=== PATIENT | male | born 1970 | race Caucasian/White ===

== ENCOUNTER 2023-08-22 14:19 | Emergency (ER) | payer OTHER, SELFPAY ==
[2023-08-22 14:32] VITALS: BP 175/98
--- NOTE | 2023-08-22 15:42 | ED.GENMED ---
History of Present Illness
General
Chief Complaint: Musculo-Skeletal Complaint
Source: patient
Exam Limitations: none
Time Seen by Provider: 08/22/23 15:10
Nursing documentation reviewed up to this point in time: agreed with
Travel History
Have you had any contact with someone who has COVID-19?: No
Do you have any symptoms of coronavirus? Fever > 100 degrees, chills, cough, shortness of breath, sore throat, loss of taste or smell, muscle aches, or headache?: No
History of Present Illness
History of Present Illness:
53-year-old male presenting to the emergency department today with concerns of right foot pain after getting tripped up outside hitting his right foot on something in his yard. Ongoing pain to the top of his foot since. Denies any additional
concerns numbness weakness or additional trauma.
Review of Systems
Review of Systems
Allergies reviewed?: Yes
All Other Systems: ROS reviewed and negative except as documented in HPI and ROS
Phy Exam
Physical Exam
Physical Exam:
GENERAL: Alert , in no apparent distress
EYE: pupils equal and reactive
NECK: Supple, no significant adenopathy.
ENT: o/p clr, mmm.
CARDIAC: Regular rate and rhythm .
LUNGS: Clear breath sounds bilaterally, no acute respiratory distress, no wheezes/rales/rhonchi
ABDOMEN: Soft, without focal tenderness, no r/g, no cvat
NEUROLOGICAL: Alert and oriented, no focal neuro deficits
SKIN: Warm and dry, skin intact.
MUSCULOSKELETAL: Mild swelling and tenderness palpation mainly to the midfoot no tenderness to the base of the fifth metatarsal or ankle no tenderness to the toes. No tenderness to the tib-fib. Well perfused.
PSYCH: Normal and appropriate interaction.
Course
Orders/Labs/Results
Orders:
Orders
08/22/23 14:37
Foot, Right 3 View [CR Foot - Right Min 3 Views] Urgent
Comment:
Reason For Exam: injury/trauma
08/22/23 15:54
boot [Ortho Boot Right- Treatment] ONCE
Short or tall?: Short
Vital Signs
Initial and Last Documented VS:
Initial Vital Signs
Temp Pulse Resp BP Pulse Ox
98.1 F 65 18 175/98 98
08/22/23 14:32 08/22/23 14:32 08/22/23 14:32 08/22/23 14:32 08/22/23 14:32
Last Documented Vital Signs
Temp Pulse Resp BP Pulse Ox
98.1 F 65 18 175/98 98
08/22/23 14:32 08/22/23 14:32 08/22/23 14:32 08/22/23 14:32 08/22/23 14:32
MDM/Problems Addressed
MDM/Problems Addressed:
53-year-old male presenting to the emergency department today with concerns of right-sided foot discomfort after hitting his foot while gardening yesterday. Difficulty ambulating today. Pain mainly to the midfoot on exam x-ray without obvious
signs of fracture. Patient with likely sprain patient was given a hard soled shoe but otherwise stable for discharge. Return precautions given.
*Critical Care Note
Total Time (30-74mins, 75-104mins- exclusive of procedures): Not Applicable
ED Attending Note
-
Portions of this chart may have been created with voice recognition software.� Occasional wrong word or��sound alike� substitutions may have occurred due to the inherent limitations of voice recognition software.
Discharge Plan
Departure
Patient Disposition: Home (Routine Discharge)
Date of Disposition: 08/22/23
Time of Disposition: 15:54
Patient with high blood pressure during this ER visit?: Yes
Condition: Good
Covid-19: Not Applicable
Discharge Problem:
Foot sprain
Instructions: Muscle and Bone Pain (DC), BLOOD PRESSURE
Prescriptions:
New
oxycodone 5 mg capsule
5 mg PO Q6H PRN (Reason: Pain) Qty: 5 0RF
Referrals:
Landon Capellan DPM [Active] - Follow up in 10 days
Aron Ray DO [Family Provider] -
Activity Restrictions/Additional Instructions:
You came to the emergency department today with concerns of foot discomfort. Here you had a reassuring x-ray. Please rest and progress activity over the next week or so. Return to the emergency department for any worsening, new or concerning
symptoms.
Interventions
Interventions:
*Risk Screen - Suicide Last Done: 08/22/23 14:32
*General Assessment Last Done: 08/22/23 14:32
*Neglect/Abuse Screening Last Done: 08/22/23 14:32
*ED COVID-19 Vaccine History Last Done: 08/22/23 14:32
ED-Musculoskeletal Assessment Last Done: 08/22/23 15:07
Discharge Date and Time
Print Language: DIVEHI
== END 2023-08-22 16:11 | disposition home or self-care (01) ==
LOC: EMR 14:19
PROVIDERS: EMERGENCY PHYSICIAN Emergency Medicine; FAMILY PHYSICIAN Family Medicine
DX: S93.601A Unspecified sprain of right foot, initial encounter (principal); W22.8XXA Striking against or struck by other objects, initial encounter; Y92.007 Garden or yard of unspecified non-institutional (private) residence as the place of occurrence of the external cause; R03.0 Elevated blood-pressure reading, without diagnosis of hypertension
CPT/HCPCS: 99283; 29515; 73630